=== PATIENT | male | born 1955 | race African-American/Black ===

== ENCOUNTER 2017-07-06 10:47 | Emergency (ER) | payer BC, OTHER ==
[~2017-07-06] VITALS: Ht 182.9 cm; Wt 104.3 kg
[~2017-07-06 10:47] MED LIST: NONE PER PT
[2017-07-06] MEDS ORDERED: MUPIROCIN 2% OINT 22 GM TUBE TP ONE (11:00)
[2017-07-06 11:11] VITALS: BP 149/78
[2017-07-06] MEDS ORDERED: MUPIROCIN 2% OINT 22 GM TUBE ONE (11:11)
--- NOTE | 2017-07-06 11:12 | NUR ---
Patient discharged to home in stable conditon. Written and verbal after care instructions given. Patient verbalizes understanding of instructions.
== END 2017-07-06 11:14 | disposition home or self-care (01) ==
LOC: ER 10:47
DX: L98.499 Non-pressure chronic ulcer of skin of other sites with unspecified severity (principal); Z88.0 Allergy status to penicillin; Z99.3 Dependence on wheelchair
CPT/HCPCS: A4663

== ENCOUNTER 2021-07-31 12:16 | Inpatient (IN) | payer MEDICARE, BC ==
[~2021-07-31] VITALS: Ht 182.9 cm; Wt 104.3 kg
--- NOTE | 2021-07-31 12:40 | NUR ---
Pt was triaged and placed in ER waiting room with family. There are no ER beds available.
--- NOTE | 2021-07-31 15:10 | NUR ---
Pt to room 5A via w/c.
--- NOTE | 2021-07-31 15:15 | NUR ---
Blood drawn by lab, EKG done.
[2021-07-31 15:30] LABS: HEMATOCRIT 42.1 % (36.7-47.1); MEAN CORPUSCULAR HEMOGLOBIN 28.9 uug (23.8-33.4); MEAN CORPUSCULAR VOLUME 86.2 fL (73.0-96.2); PLATELET COUNT (AUTO) 254 K/uL (152-348)
[2021-07-31 15:36] LABS: CREATININE 1.2 mg/dL (0.6-1.3); POTASSIUM 3.8 mmol/L (3.5-5.1)
[2021-07-31] MEDS ORDERED: CEFTRIAXONE 1 G in IV DEXTROSE 5% 50 ML IV ONE (16:30)
[2021-07-31] MEDS ORDERED: CEFTRIAXONE /D5W 50ML IVPB **ER PYXIS IV ONE (18:02)
[2021-07-31] MEDS ORDERED: ONDANSETRON 4 MG/2 ML VIAL IV PRN (19:45)
[2021-07-31] MEDS ORDERED: HYDROCODONE/APAP 10-325 MG TABLET PO PRN (19:45)
[2021-07-31] MEDS ORDERED: Z GUARD REMEDY PASTE 57 GM TUBE TOP PRN (19:45)
[2021-07-31] MEDS ORDERED: ACETAMINOPHEN 325 MG TABLET PO PRN (19:45)
--- NOTE | 2021-07-31 20:30 | NUR ---
Pt's cousin, Bradley, called to inquire about the pts condition. I went and told the pt Bradley was on the line, the pt at this time said he was feeling tired and wanted to get some rest so he told me to update Bradley and that He would call him in the morning. I obliged. I told Bradley that the pt was here in the ED and was doing fine, VSS, pt was informed of the phone call and said that he would call him in the morning. I told Bradley that I would take great care of Phil all night. Bradley was very thankful.
[2021-07-31] MEDS ORDERED: GUAIFENESIN/DEXTROMETHORPHAN 5 ML UDC PO PRN (20:45)
[2021-07-31] MEDS: ENOXAPARIN SODIUM 40 MG/0.4 ML DISP.SYRIN SQ SCH (21:00)
--- NOTE | 2021-07-31 21:20 | NUR ---
Thorough report was recieved from charge nurse William, regarding pts status. Basically pt is admitted and in holding pattern til room opens up and bed is assigned. Nothing pending on the pt except scheduled meds. Pt is doing good, with good color and appearance. VSS, PEWNL, Pt aaox4. Pt denies any pain, n/v, sob, or discomfort at this time.
[2021-07-31] MEDS ORDERED: BENZONATATE 100 MG CAPSULE ONE (22:04)
[2021-07-31] MEDS ORDERED: ENOXAPARIN SODIUM 40 MG/0.4 ML DISP.SYRIN SQ ONE (22:04)
[2021-07-31] MEDS: BENZONATATE 100 MG CAPSULE PO SCH (22:34)
[2021-08-01] MEDS: BENZONATATE 100 MG CAPSULE PO SCH ×3 (06:00→21:12)
[2021-08-01 06:04] LABS: HEMATOCRIT 39.3 % (36.7-47.1); MEAN CORPUSCULAR HEMOGLOBIN 28.7 uug (23.8-33.4); MEAN CORPUSCULAR VOLUME 85.3 fL (73.0-96.2); PLATELET COUNT (AUTO) 260 K/uL (152-348)
[2021-08-01 06:42] LABS: PHOSPHOROUS 3.1 mg/dL (2.5-4.9); POTASSIUM 3.7 mmol/L (3.5-5.1)
--- NOTE | 2021-08-01 07:12 | NUR ---
Pt was moved from room 5a to 1B due to his covid pos status. Pt is not very comfortable in the new room due to the ambient fan noise. I assured the pt that hopefully he ought to be in his room, on a hospital bed by no later than 0830, and that his EDRN will try to expodite as much as possible to get him up as soon as possible. Pt is doing good, AAOx4, completely asymptomatic, VSS, PE WNL. On bedside monitor in NSR without ectopy.
--- NOTE | 2021-08-01 07:16 | NUR ---
Brief report given to relief RN using SBAR method.
[2021-08-01] MEDS: PANTOPRAZOLE SODIUM 40 MG TABLET.DR PO SCH (07:21)
--- NOTE | 2021-08-01 08:48 | NUR ---
REPORT WAS GIVEN TO RN M/S. PT WAS TRANSFERED TO ROOM #301B.
--- NOTE | 2021-08-01 10:45 | NUR ---
Received patient from ED via [facility]. Patient AOx4. On room air. No signs of acute distress. Patient denied pain/ discomfort. Patient denied SOB/ . Oriented patient to unit and room. Call light within reach. Bed alarm on. Vital signs WNL. Will continue to monitor.
[2021-08-01 11:00] VITALS: BP 114/59
[2021-08-01] MEDS: VANCOMYCIN IV 1,250 MG in IV DEXTROSE 5% 250 ML IV SCH (14:33)
[2021-08-01] MEDS: ARGININE/GLUTAMINE/CALCIUM BMB 1 EACH POWD.PACK PO SCH (14:33)
[2021-08-01 16:49] VITALS: BP 109/55
--- NOTE | 2021-08-01 19:40 | NUR ---
Received patient lying in bed. AAOX4. Able to make needs known. IV access on R AC, intact and patent. Safety measures initiated. Will continue to monitor.
--- NOTE | 2021-08-01 20:00 | NUR ---
Received patient asleep in bed. Aroused easily. AAOX3-4. Able to make needs known. On telemonitor, showing SR and BBB with HR of 95bpm. Receiving 30L O2 via NC, saturating at 99%. With bilateral mittens, skin and circulation monitored frequently. With Gtube feeding running at 75cc/hr. With Subclavian 3-lumen, intact and patent. Transferred pt to air mattress, wound care done. Safety precautions initiated. Will continue to monitor. Addendum: 08/02/21 at 0135 by ARAMIS MCCRARY RN Disregard notes above, wrong patient.
[2021-08-01] MEDS: ENOXAPARIN SODIUM 40 MG/0.4 ML DISP.SYRIN SQ SCH (21:20)
[2021-08-01 21:29] VITALS: BP 96/67
[2021-08-02] MEDS: VANCOMYCIN IV 1,250 MG in IV DEXTROSE 5% 250 ML IV SCH ×2 (01:58→15:45)
[2021-08-02 04:20] VITALS: BP 117/72
[2021-08-02] MEDS: BENZONATATE 100 MG CAPSULE PO SCH ×3 (06:38→22:31)
[2021-08-02] MEDS: PANTOPRAZOLE SODIUM 40 MG TABLET.DR PO SCH (06:38)
[2021-08-02 07:52] LABS: CREATININE 1.1 mg/dL (0.6-1.3); MAGNESIUM 2.1 mg/dL (1.8-2.4); PHOSPHOROUS 3.3 mg/dL (2.5-4.9); POTASSIUM 3.8 mmol/L (3.5-5.1)
[2021-08-02 07:55] LABS: HEMATOCRIT 39.6 % (36.7-47.1); MEAN CORPUSCULAR HEMOGLOBIN 29.1 uug (23.8-33.4); MEAN CORPUSCULAR VOLUME 86.1 fL (73.0-96.2); PLATELET COUNT (AUTO) 315 K/uL (152-348)
[2021-08-02] MEDS: ARGININE/GLUTAMINE/CALCIUM BMB 1 EACH POWD.PACK PO SCH (08:51)
[2021-08-02 12:33] VITALS: BP 110/70
[2021-08-02 16:38] VITALS: BP 109/66
[2021-08-02] MEDS: ENOXAPARIN SODIUM 40 MG/0.4 ML DISP.SYRIN SQ SCH (20:29)
[2021-08-02 20:46] VITALS: BP 119/66
[2021-08-03] MEDS: VANCOMYCIN IV 1,250 MG in IV DEXTROSE 5% 250 ML IV SCH (02:00)
--- NOTE | 2021-08-03 02:08 | NUR ---
Vanco trough is 25.9, Vancomycin dose held.
[2021-08-03 04:20] VITALS: BP 125/72
[2021-08-03] MEDS: BENZONATATE 100 MG CAPSULE PO SCH ×3 (05:58→22:00)
[2021-08-03] MEDS: PANTOPRAZOLE SODIUM 40 MG TABLET.DR PO SCH (06:02)
--- NOTE | 2021-08-03 07:00 | NUR ---
Patient slept well, no discomfort, no significant events this shift.
[2021-08-03 07:34] LABS: CREATININE 1.4 mg/dL (0.6-1.3); POTASSIUM 3.9 mmol/L (3.5-5.1)
[2021-08-03] MEDS: ARGININE/GLUTAMINE/CALCIUM BMB 1 EACH POWD.PACK PO SCH (09:28)
[2021-08-03 12:00] VITALS: BP_SYST 106; BP_SYST 109; BP_DIAS 57; BP_DIAS 64
[2021-08-03 16:00] VITALS: BP 112/59
[2021-08-03] MEDS ORDERED: VANCOMYCIN IV 1,250 MG in IV DEXTROSE 5% 250 ML IV SCH (16:00)
--- NOTE | 2021-08-03 19:30 | NUR ---
Patient resting in bed. In no acute distress. On RA. no SOB. States cough is still present, dry, but rare.IV to left AC, patent and intact. Denies any pain or discomfort. Safety measures started and call light within reach.
[2021-08-03 20:00] VITALS: BP_SYST 103; BP_SYST 115; BP_DIAS 58; BP_DIAS 76
[2021-08-03] MEDS: ENOXAPARIN SODIUM 40 MG/0.4 ML DISP.SYRIN SQ SCH (21:00)
[2021-08-04 04:00] VITALS: BP 105/58
[2021-08-04] MEDS: BENZONATATE 100 MG CAPSULE PO SCH ×3 (06:16→21:38)
[2021-08-04] MEDS: PANTOPRAZOLE SODIUM 40 MG TABLET.DR PO SCH (06:16)
[2021-08-04 06:45] LABS: HEMATOCRIT 37.2 % (36.7-47.1); MEAN CORPUSCULAR HEMOGLOBIN 29.3 uug (23.8-33.4); MEAN CORPUSCULAR VOLUME 86.2 fL (73.0-96.2); PLATELET COUNT (AUTO) 389 K/uL (152-348)
--- NOTE | 2021-08-04 06:45 | NUR ---
Slept well throughout shift. Self catheterized one time this sift. Refuses to self cath or allow this RN to cath again. no significant events this shift. Able to re-inforce dressing to Bilateral buttocks and scrotum. Pending wound eval. Call light within reach.
[2021-08-04 07:19] LABS: MAGNESIUM 2.2 mg/dL (1.8-2.4); PHOSPHOROUS 3.4 mg/dL (2.5-4.9)
[2021-08-04 07:38] LABS: CREATININE 1.6 mg/dL (0.6-1.3)
--- NOTE | 2021-08-04 08:00 | NUR ---
Pt alert and oriented. Left groin wound had serous sanguinous drainage noted. Buttocks serous drainage noted. Reapplied mepilex. F/u with 1st step air Mattress with central. Awaiting wound care nurse today.
[2021-08-04] MEDS: ARGININE/GLUTAMINE/CALCIUM BMB 1 EACH POWD.PACK PO SCH ×2 (09:08→15:54)
--- NOTE | 2021-08-04 10:33 | NUR ---
WOUND CARE CONSULT: REVIEWED CHART,NURSING DOCUMENTATION AND PHOTOS WHICH INDICATE UNSTAGEABLE PRESSURE ULCERS TO SACRUM AND BILATERAL BUTTOCKS, PRESENT ON ADMISSION. DR MATILDA HIRSHC ON CASE. DISCUSSED WOUND CARE RECOMMENDATIONS WITH NURSING STAFF AND SURGICAL TEAM. FIRST STEP MATTRESS IS ORDERED. MD IN AGREEMENT WITH PLAN OF CARE.
[2021-08-04] MEDS: SODIUM HYPOCHLORITE 0.125% (QUARTER STRENGTH) 473 ML BOTTLE TP SCH (11:33)
[2021-08-04 12:00] VITALS: BP_SYST 113; BP_DIAS 67; BP_DIAS 69
[2021-08-04] MEDS ORDERED: IV NS 1000 ML 1,000 ML IV PRN (13:00)
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
[2021-08-04] MEDS ORDERED: LIDOCAINE 1%-EPI 1:100,000 20 ML VIAL IJ ONE (14:00)
[2021-08-04] MEDS ORDERED: SILVER NITRATE APPLICATOR STICK EACH TP ONE (15:00)
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
[2021-08-04] MEDS: ENSURE ENLIVE (VAN) 240 ML LIQUID PO SCH (15:54)
[2021-08-04 16:00] VITALS: BP 135/64
--- NOTE | 2021-08-04 16:00 | NUR ---
Pt seen by Consuelo PRODUCT MGR debridement done. PT tolerated procedure. PT denies any c/o pain.
[2021-08-04] MEDS: ENOXAPARIN SODIUM 40 MG/0.4 ML DISP.SYRIN SQ SCH (20:57)
--- NOTE | 2021-08-05 03:39 | NUR ---
Awake and alert and oriented x4 Needs attended. VSS. Denies any pain nor any discomfort. Dressing changed to left ischial ulcer done. Incontinent of BM x1 Kept clean and dry. Patient do own self catheterization with yellow urine noted. All due meds given as ordered. Fall precautions noted. No acute distress noted.
[2021-08-05] MEDS: BENZONATATE 100 MG CAPSULE PO SCH ×3 (05:20→21:10)
[2021-08-05] MEDS: PANTOPRAZOLE SODIUM 40 MG TABLET.DR PO SCH (06:12)
[2021-08-05 06:53] LABS: HEMATOCRIT 37.6 % (36.7-47.1); MEAN CORPUSCULAR HEMOGLOBIN 28.6 uug (23.8-33.4); MEAN CORPUSCULAR VOLUME 86.1 fL (73.0-96.2); PLATELET COUNT (AUTO) 423 K/uL (152-348)
[2021-08-05 07:11] LABS: CREATININE 1.6 mg/dL (0.6-1.3); POTASSIUM 4.3 mmol/L (3.5-5.1)
[2021-08-05 07:16] LABS: MAGNESIUM 2.2 mg/dL (1.8-2.4); PHOSPHOROUS 3.4 mg/dL (2.5-4.9); VANCOMYCIN,RANDOM 12.7 ug/mL (18.0-26.0)
[2021-08-05] MEDS ORDERED: VANCOMYCIN IV 1,000 MG in IV DEXTROSE 5% 250 ML IV ONE ×2 (08:00→17:15)
[2021-08-05] MEDS: ZINC SULFATE 220 MG CAPSULE PO SCH (09:03)
[2021-08-05] MEDS: ASCORBIC ACID 500 MG TABLET PO SCH (09:03)
[2021-08-05] MEDS: ENSURE ENLIVE (VAN) 240 ML LIQUID PO SCH ×2 (09:09→17:58)
[2021-08-05] MEDS: ARGININE/GLUTAMINE/CALCIUM BMB 1 EACH POWD.PACK PO SCH ×2 (09:09→17:58)
[2021-08-05] MEDS: SODIUM HYPOCHLORITE 0.125% (QUARTER STRENGTH) 473 ML BOTTLE TP SCH (09:10)
--- NOTE | 2021-08-05 12:37 | NUR ---
pt is a/o x 4, no complaint of pain or SOB. Pt's IV is occluded, unable to administer morning iv vanco. Notified pharmacy. Pending midline insertion for pt. Attempted peripheral IV insertion, unsuccessful. Vitals within normal limits BP 110/67 HR 90. Comfort measures provided, call light within reach, will continue to monitor pt.
[2021-08-05] MEDS: ENOXAPARIN SODIUM 40 MG/0.4 ML DISP.SYRIN SQ SCH (20:36)
--- NOTE | 2021-08-06 03:57 | NUR ---
AA)x4 Bedb ound. On continous IVF's infusing well via right upper arm midline. Needs attended. Denies any pain nor any discomfort. Dressing intact to left ischial buttock. Patient do own armando catheterization, moderate amount of yellow urine noted. Will monitor patient. Possible d/c to home with home health today.
[2021-08-06] MEDS: BENZONATATE 100 MG CAPSULE PO SCH ×2 (05:36→14:13)
[2021-08-06] MEDS: PANTOPRAZOLE SODIUM 40 MG TABLET.DR PO SCH (06:12)
[2021-08-06 08:12] LABS: HEMATOCRIT 37.5 % (36.7-47.1); MEAN CORPUSCULAR HEMOGLOBIN 28.8 uug (23.8-33.4); MEAN CORPUSCULAR VOLUME 86.4 fL (73.0-96.2); PLATELET COUNT (AUTO) 497 K/uL (152-348)
[2021-08-06 08:26] LABS: CREATININE 1.6 mg/dL (0.6-1.3); MAGNESIUM 2.2 mg/dL (1.8-2.4); PHOSPHOROUS 3.4 mg/dL (2.5-4.9); POTASSIUM 4.2 mmol/L (3.5-5.1)
[2021-08-06] MEDS: ZINC SULFATE 220 MG CAPSULE PO SCH (09:12)
[2021-08-06] MEDS: ENSURE ENLIVE (VAN) 240 ML LIQUID PO SCH (09:12)
[2021-08-06] MEDS: ASCORBIC ACID 500 MG TABLET PO SCH (09:12)
[2021-08-06] MEDS: ARGININE/GLUTAMINE/CALCIUM BMB 1 EACH POWD.PACK PO SCH (09:12)
[2021-08-06] MEDS: SODIUM HYPOCHLORITE 0.125% (QUARTER STRENGTH) 473 ML BOTTLE TP SCH (09:13)
--- NOTE | 2021-08-06 10:15 | NUR ---
new discharge order pending transportation arrangements.
[2021-08-06] MEDS ORDERED: ASCO500T21 PO (10:17)
[2021-08-06] MEDS ORDERED: DOXY-326 PO (10:17)
[2021-08-06] MEDS ORDERED: SODI473S8 TP (10:17)
[2021-08-06] MEDS ORDERED: BENZ-38 PO (10:17)
[2021-08-06] MEDS ORDERED: NUTR1PAC14 PO (10:17)
[2021-08-06] MEDS ORDERED: PANT40TA49 PO (10:17)
[2021-08-06] MEDS ORDERED: ZINC1CAP3 PO (10:17)
--- NOTE | 2021-08-06 10:20 | NUR ---
received call from tapan at [facility] wishing to speak to patient. informed patient, per patient have her call my cousin, called tapan to inform her with no answer, message was left.
[2021-08-06 11:15] LABS: NEUTROPHILS % (MANUAL) 0 % (42-75)
--- NOTE | 2021-08-06 13:00 | NUR ---
received call from edwin arnold; per [place] caregiver will sisal picker patient at [phone]
--- NOTE | 2021-08-06 14:00 | NUR ---
discussed all discharge orders with patient reminded patient " to f/u with hcp w/n 1-2 wk. To complete ATB course and take current medication as ordered, patient states understanding." midline and right ac peripheral line removed, minimal bleeding noted, dressing applied. belongings list complete all belongings present.
--- NOTE | 2021-08-06 14:35 | NUR ---
caregiver at facility assisting patient onto scooter to transfer downstairs onto personal car.
--- NOTE | 2021-08-06 15:00 | NUR ---
assisted patient onto vehicle safely, all belongings with patient. patient upon d/c covid + reminded patient to isolate until covid - status, v/s wnl , 0 cough, rr even and nonlabored.
--- NOTE | 2021-08-14 11:34 | NUR ---
Clinical Social Work Note ARASH spoke with Miriam at [facility] and provided information regarding patient's discharge plan.
== END 2021-08-06 15:00 | disposition home or self-care (01) | DRG 579 ==
LOC: ER 12:16 → TRANSITION 17:54 → MEDSURG3 08-01 08:14
PROVIDERS: ADMIT Nurse Practitioner Family; ATTEND Nurse Practitioner Family
PROC: 0KBP0ZZ Excision of Left Hip Muscle, Open Approach (ICD-10-PCS; principal; 2021-08-04)
PROC: 05HY33Z Insertion of Infusion Device into Upper Vein, Percutaneous Approach (ICD-10-PCS; 2021-08-05)
DX: L89.324 Pressure ulcer of left buttock, stage 4 (principal); U07.1 COVID-19; N17.0 Acute kidney failure with tubular necrosis; G82.20 Paraplegia, unspecified; J98.11 Atelectasis; S24.104S Unspecified injury at T11-T12 level of thoracic spinal cord, sequela; X58.XXXS Exposure to other specified factors, sequela; E83.51 Hypocalcemia; Z99.3 Dependence on wheelchair; Z87.440 Personal history of urinary (tract) infections; L89.890 Pressure ulcer of other site, unstageable; N31.9 Neuromuscular dysfunction of bladder, unspecified
CPT/HCPCS: 36415; 70030-TC; 71045; 83605; 83615; 83735; 84100; 85025; 85651; 86140; 87040; 87070; 87077; 93005; A4217; A4663; A6209; G0378; J0696; J1650; J3370; J3490; J7030; J7040; J7060